=== PATIENT | female | born 2000 | race Caucasian/White ===

== ENCOUNTER 2019-06-26 13:53 | Emergency (ER) | payer OTHER, BC ==
[~2019-06-26] VITALS: Ht 157.5 cm; Wt 117.9 kg
[2019-06-26] MEDS ORDERED: ZOLOFT100 MG PO (14:18)
[2019-06-26] MEDS ORDERED: TRAZODONE HCL100 MG PO (14:18)
[2019-06-26] MEDS ORDERED: TIZANIDINE HCL4 M1 PO (14:19)
[2019-06-26] MEDS ORDERED: CLONIDINE HCL0.2 M2 PO (14:19)
[2019-06-26] MEDS ORDERED: CLARITIN10 M3 PO (14:19)
[2019-06-26] MEDS ORDERED: ORILISSA150 MG PO (14:20)
[2019-06-26] MEDS ORDERED: ATIVAN0.5 M1 PO (14:21)
[2019-06-26] MEDS ORDERED: MINIPRESS2 MG PO (14:21)
[2019-06-26] MEDS ORDERED: DEPLIN-ALGAL O1 EAC1 PO (14:21)
[2019-06-26] MEDS ORDERED: HYDROXYZINE HCL25 M2 PO (14:22)
[2019-06-26] MEDS ORDERED: MOBIC15 MG PO (16:18)
[2019-06-26 16:47] VITALS: BP 138/91
== END 2019-06-26 16:48 | disposition home or self-care (01) ==
LOC: ER 13:53
DX: S33.5XXA Sprain of ligaments of lumbar spine, initial encounter (principal); F32.9 Major depressive disorder, single episode, unspecified; F41.9 Anxiety disorder, unspecified; J45.909 Unspecified asthma, uncomplicated; Z90.49 Acquired absence of other specified parts of digestive tract; Z88.1 Allergy status to other antibiotic agents; Z88.8 Allergy status to other drugs, medicaments and biological substances; G40.89 Other seizures; X58.XXXA Exposure to other specified factors, initial encounter; Y92.89 Other specified places as the place of occurrence of the external cause; Y93.89 Activity, other specified; Y99.8 Other external cause status